=== PATIENT | female | born 1990 | race Caucasian/White ===

== ENCOUNTER → 2019-03-12 11:10 | Outpatient (CLI) | payer OTHER, SELFPAY ==
[2019-03-12 16:25] LABS: Follicle Stimulating Hormone 1.9 mIU/mL; Free T3 3.1 pg/mL (2.18-3.98); Luteinizing Hormone 6.5 mIU/mL; T4 Free Direct 1.05 ng/dL (0.76-1.46); Thyroid Stim Hormone (TSH) 1.06 uIU/mL (0.358-3.74)
[2019-03-12 16:26] LABS: Progesterone Level 11.66 ng/mL (See Comment)
== END ==
PROVIDERS: Visit Provider Advanced Practice Midwife
DX: N92.6 Irregular menstruation, unspecified (principal)
CPT/HCPCS: 36415; 83001; 83002; 84144; 84439; 84443; 84481

== ENCOUNTER → 2019-06-12 16:35 | Outpatient (CLI) | payer OTHER, SELFPAY ==
[2019-06-12 19:26] LABS: Chlamydia Trachomatis by PCR Negative (Negative); Neisserai gonorrhoeae by PCR Negative (Negative); Probe Check PASS; Sample Adequacy Control PASS; Specimen Processing Control PASS
== END ==
PROVIDERS: Visit Provider Obstetrics & Gynecology
DX: Z11.3 Encounter for screening for infections with a predominantly sexual mode of transmission (principal)
CPT/HCPCS: 87491; 87591

== ENCOUNTER → 2019-07-09 | Outpatient (CLI) | payer OTHER, SELFPAY ==
[2019-07-09 17:56] LABS: Absolute Lymphocyte Count 1.21 X10^3/uL (0.83-4.51); Absolute Neutrophil Count 5.2 X10^3/uL (2.0-7.7); Basophil# 0.03 X10^3/uL; Basophil% 0.4 % (0-1); Eosinophil# 0.07 X10^3/uL; Hematocrit 32.1 % (37-47); Hemoglobin 10.3 g/dL (12.0-15.0); Lymphocyte # 1.21 X10^3/ul (4.0); Lymphocyte % 17.3 % (19-41); Mean Corp Hgb Conc 32.1 g/dL (32-36); Mean Corpuscular Hgb 25.7 pg (27.0-32.0); Mean Platelet Vol. 9.5 fl (6.2-12.0); Monocyte# 0.46 X10^3/uL; Monocyte% 6.6 % (0-10); NRBC Flagged by Analyzer 0 % (0-5); Neutrophil # 5.21 X10^3/uL (2.7-7.7); Neutrophil % 74.4 % (47-70); Platelet Count 244 K/mm3 (150-450); RBC Distribution Width CV 16.4 % (11.6-14.6); RBC Distribution Width SD 47.8 fl (35.1-43.9); Red Blood Count 4.01 M/mm3 (4.2-5.4)
[2019-07-09 18:44] LABS: Hemoglobin A1c 4.7 % (4.2-6.3)
[2019-07-10 01:56] LABS: Prenatal RPR NONREACTIVE (NONREACTIVE)
[2019-07-10 11:29] LABS: HIV - WCH Non-Reactive (Nonreactive); Hepatitis B Surface Antigen Non-Reactive (Nonreactive); Hepatitis C Antibody Non-Reactive (Nonreactive); Rubella IgG 24.3 IU/mL
== END | disposition home or self-care (01) ==
PROVIDERS: Referring Provider Obstetrics & Gynecology; Visit Provider Obstetrics & Gynecology
DX: Z34.81 Encounter for supervision of other normal pregnancy, first trimester (principal)
CPT/HCPCS: 83036; 84443; 85025; 86703; 86762; 86803; 87340

== ENCOUNTER → 2019-11-05 | Outpatient (CLI) | payer OTHER, SELFPAY ==
[2019-11-05 17:29] LABS: Color, Urine Yellow (Yellow); Glucose, Dipstick 50 mg/dl (Normal); Ketone-Dipstick Negative (Negative); Leukocyte Esterase-Dipstick 500 /ul (Negative); Nitrite-Dipstick Negative (Negative); Occult Blood-Urine Negative /ul (Negative); Protein-Dipstick Negative (Negative); Specific Gravity, Urine 1.015 (1.002-1.030); Urine Bilirubin Dipstick Negative (Negative); Urine Clarity Sl. Cloudy (Clear); Urine Urobilinogen Normal (Normal)
[2019-11-05 17:31] LABS: Glucose Challenge Gest 1H 50g 117 mg/dL (70-140)
[2019-11-05 17:35] LABS: Hematocrit 36.4 % (37-47); Hemoglobin 12.4 g/dL (12.0-15.0); Mean Corp Hgb Conc 34.1 g/dL (32-36); Mean Corpuscular Hgb 32.5 pg (27.0-32.0); Mean Corpuscular Volume 95.5 fL (81-99); Mean Platelet Vol. 9.5 fl (6.2-12.0); Platelet Count 191 K/mm3 (150-450); RBC Distribution Width CV 13.3 % (11.6-14.6); RBC Distribution Width SD 46.9 fl (35.1-43.9); Red Blood Count 3.81 M/mm3 (4.2-5.4); White Blood Count 7.8 K/mm3 (4.4-11.0)
[2019-11-05 18:23] LABS: Amphetamine Urine VISTA NEGATIVE (<1000 ng/mL); Barbiturate Urine VISTA NEGATIVE (< 200 ng/mL); Benzodiazepine Urine VISTA NEGATIVE (< 200 ng/mL); Cocaine Urine VISTA NEGATIVE (< 300 ng/mL); Ecstacy Urine VISTA NEGATIVE (< 500 ng/mL); Methadone Urine VISTA NEGATIVE (< 300 ng/mL); PCP Urine VISTA NEGATIVE (< 25 ng/mL); THC Urine VISTA NEGATIVE (< 50 ng/mL); Vista UDS pH Range 6
== END | disposition home or self-care (01) ==
LOC: WOBLAB 16:26
PROVIDERS: Visit Provider Obstetrics & Gynecology
DX: Z34.82 Encounter for supervision of other normal pregnancy, second trimester (principal)
CPT/HCPCS: 36415; 80307; 81002; 82950; 85027

== ENCOUNTER → 2020-01-06 16:56 | Outpatient (CLI) | payer OTHER, SELFPAY | PROVIDERS: Visit Provider Obstetrics & Gynecology | DX: Z36.85 Encounter for antenatal screening for Streptococcus B (principal) | CPT/HCPCS: 87077; 87081; 87186 ==

== ENCOUNTER 2020-01-15 04:40 | Inpatient (IN) | payer OTHER, SELFPAY ==
[2020-01-15] VITALS (24 sets, daily range): BP systolic 121–159; BP diastolic 59–96; PULSE 73–102; RESP 16; TEMP 36.4–37.1; O2SAT 98–100; BMI 43.7
[2020-01-15 04:34] LABS: ROM Internal Control Test YES-OK TO RESULT pt. (Internal QC)
[2020-01-15 04:36] LABS: ROM Patient Test POSITIVE (Negative)
--- NOTE | 2020-01-15 05:29 | PCM.HP.OB ---
- Problem List (1) 37 weeks gestation of Status: Acute (2) SROM (spontaneous rupture of membranes) Status: Acute History Date of Admission: 01/15/20 Final GILBERT: 01/31/20 Gestational age: 37 Weeks and 5 Days History of this : This is a 29 year-old, G [1], P [], at 37 5/7 weeks gestational age presenting with leaking of clear fluid and contractions. Medical History: Medical History (Last Updated 01/15/20 @ 05:[address] Trini Howard MD) Ovarian cyst affecting , antepartum O34.80, N83.209 left in Surgical History: Surgical History (Last Updated 01/15/20 @ 07:[address] Trini Howard MD) History of bunionectomy Z98.890 Hx of hernia repair Z98.890, Z87.19 age 10 Allergies No Known Allergies Allergy (Verified 01/15/20 04:19) Home Medications: Home Medications Pnv No.95/Ferrous Fum/Folic AC [ Caplet] 1 ea PO DAILY 01/15/20 Smoking Status: Never smoker Alcohol: None Number of Fetus(es): 1 NST - FHR Rate Baby A Baseline: 140 Variability:: Moderate Accelerations:: 15 x 15 Decelerations:: None NST Reactive:: Yes FHR Category:: Category I Uterine Activity:: 3/10 min History Past Pregnancies: Past Pregnancies Delivery Date Name GA/ Weeks Outcome Route Wt Sex Labor Length Anesthesia Delivery Location Provider FOB Labs: Mom's Problem List Problem Status Onset Code 37 weeks gestation of Acute Z3A.37 SROM (spontaneous rupture of membranes) Acute Mom's Labs & Results 01/15/20 04:20 Vag Amniotic Fld Detect POSITIVE H Course Did the patient receive Yes care? Labs Blood Type: B RH: POSITIVE RPR/VDRL/Syphilis Nonreactive Rubella status Immune HbSAg Negative Date Done: 07/09/19 Chlamydia Negative Gonorrhea Negative HIV/AIDS Non-Reactive Group B Strep: Positive Current Obstetrical History Gestational Diabetes No Incompetent Cervix No Infertility No IUGR No Macrosomia No Hypertension/Pre-eclampsia No Placenta Previa/Abruption No PTL/PROM No Uterine anomaly No Oligohydramnios No Polyhydramnios No Multiple gestation No Past Medical History Asthma No Diabetes No Hypertension No Heart disease No Mitral valve prolapse No Neurologic/Seizure disorder/ No Migraines Kidney disease No Liver disease No Varicosities No Clotting disorders/Hx of DVT No Thyroid Dysfunction No Other medical diseases No Psychiatric disorders No Major trauma No Abnormal PAP smear No Sleep apnea No Mammogram in the last 2 years No Social History Marital Status: Alleged father Kelvin Fox Hx Smoking No Smoking Status Never smoker Expected Infant Delivery Method: Spontaneous Vaginal Number of Visits: 10 Review of Systems Constitutional: Denies: Fever Eyes: Denies: Vision Change HEENT: Denies: Head Aches Cardiovascular: Denies: Chest Pain Respiratory: Denies: Cough, Shortness of Breath Gastrointestinal: Denies: Abdominal Pain, Nausea, Vomiting Gynecological: Denies: Vaginal bleeding Musculoskeletal: Denies: Back Pain Physical Exam Vitals: Vital Signs Temp Pulse BP Pulse Ox 98.0 F 90 135/89 H 99 01/15/20 05:01 01/15/20 05:01 01/15/20 04:11 01/15/20 05:01 General: Alert, Oriented x3, Cooperative, No apparent distress HEENT: Atraumatic, Normocephalic Cardiovascular: Regular rate, Regular Rhythm, Normal S1, Normal S2 Lungs: Clear to auscultation, Normal air movement Abdomen: Soft, Non Tender, Non-Distended, Gravid Extremities:: Other - trace b/l LE edema Neurological: Neuro grossly intact Estimated gestational size: Appropriate for gestational size Presentation: - - assessed on US with back maternal left Cervix Dilation (cm): 2 Station: -3 Effacement (%): 60 Assessment/Plan All Active Problems (Last Updated 01/15/20 @ 05:[address] Trini Howard MD) 37 weeks gestation of (Acute) SROM (spontaneous rupture of membranes) (Acute) This is a 29 year-old, G [1], P [], at 37 5/7 weeks gestational age with SROM. Admit in labor PCN for GBS positive Expectant labor management, pt desires low intervention. Will start pitocin if no significant change in contractions 6+ hours after ROM Maternal and statuses reassuring
[2020-01-15] MEDS: Lactated Ringers 1,000 ML 50 ML IV (05:30)
[2020-01-15 05:48] LABS: Absolute Lymphocyte Count 1.42 X10^3/uL (0.83-4.51); Absolute Neutrophil Count 7.4 X10^3/uL (2.0-7.7); Basophil# 0.04 X10^3/uL; Basophil% 0.4 % (0-1); Eosinophil# 0.09 X10^3/uL; Eosinophils% 0.9 % (0-5); Hematocrit 33.9 % (37-47); Hemoglobin 11.3 g/dL (12.0-15.0); Lymphocyte # 1.42 X10^3/ul (4.0); Lymphocyte % 14.5 % (19-41); Mean Corp Hgb Conc 33.3 g/dL (32-36); Mean Corpuscular Hgb 31.5 pg (27.0-32.0); Mean Corpuscular Volume 94.4 fL (81-99); Mean Platelet Vol. 9.7 fl (6.2-12.0); Monocyte# 0.76 X10^3/uL; Monocyte% 7.7 % (0-10); NRBC Flagged by Analyzer 0 % (0-5); Neutrophil # 7.39 X10^3/uL (2.7-7.7); Neutrophil % 75.4 % (47-70); Platelet Count 189 K/mm3 (150-450); RBC Distribution Width CV 12.7 % (11.6-14.6); RBC Distribution Width SD 43.8 fl (35.1-43.9); Red Blood Count 3.59 M/mm3 (4.2-5.4); White Blood Count 9.8 K/mm3 (4.4-11.0)
[2020-01-15] MEDS: Oxytocin 30 units/NS 500 ml 30 UNITS/500 ML IV.SOLN IV (08:54)
[2020-01-15] MEDS: Lactated Ringers 500 ML 999 ML IV (11:47)
[2020-01-15] MEDS: Oxytocin 30 units/NS 500 ml 30 UNITS/500 ML IV.SOLN 334 UNITS IV (13:49)
--- NOTE | 2020-01-15 13:58 | PCM.OPRPT ---
Problem List (1) 37 weeks gestation of Status: Acute (2) SROM (spontaneous rupture of membranes) Status: Acute Vaginal Delivery Maternal Presentation: Spontaneous Rupture of Membranes Method of Induction: Pitocin Amniotic Membrane Rupture Type: Spontaneous at home Rupture of Membrane time: 0230h 01/15/20 Amniotic Fluid Description: Clear Final GILBERT: 01/31/20 Final GILBERT Source: US <20 weeks Gestational age: 37 Weeks and 5 Days Date of Procedure: 01/15/20 Pre-Operative Diagnosis: 37 5/7 weeks gestation, SROM Post-Operative Diagnosis: 37 5/7 weeks gestation, SROM Type of Anesthesia: None Description of Procedure: Patient was FD/+ 3 station on my arrival between contractions with Cat II FHR with recurrent variable decelerations. Patient pushed to deliver a vigorous male infant through a nuchal cord in JOSHUA over an intact perineum. The was placed on the maternal abdomen and further attended by nursery personnel. The cord was doubly clamped and cut at 3 minutes of life. The placenta delivered spontaneously and appeared intact on inspection. Cord gases were obtained. Sponge counts correct x 2. Presentation: Vertex Placental Delivery Description: Spontaneous Placenta Disposition: [facility] Cord Vessel Description: 3 Vessels Nuchal Cord Compression: With compression Cord Gases drawn per routine: ABG, VBG Cord Entanglement: None Estimated Blood Loss: 250 ml A gender: Male (1 minute): 8 (5 minute): 9 Episiotomy Description: None Laceration: None Medications given after delivery: IV Pitocin Complications: None
[2020-01-16 03:10] VITALS: BP 125/83; PULSE 84; RESP 16; TEMP 37.3
[2020-01-16] MEDS: Acetaminophen 500 MG Tablet 1000 MG PO ×2 (03:22→14:42)
--- NOTE | 2020-01-16 07:08 | PCM.PN.OB ---
Patient Problems: Active and Suspected Problems (Last Updated 01/15/20 @ 05:[address] Trini Howard MD) 37 weeks gestation of (Acute) SROM (spontaneous rupture of membranes) (Acute) Subjective: No overnight complaints. Breast-feeding. - Physical Exam Vitals/I&O's: Vital Signs Temp Pulse Resp BP Pulse Ox 99.1 F 84 16 125/83 H 100 01/16/20 03:10 01/16/20 03:10 01/16/20 03:10 01/16/20 03:10 01/15/20 13:58 Oxygen Delivery Method Room Air Weight: 195 lb 5.273 oz Body Mass Index (BMI) 43.7 Intake and Output for Last 24 Hours 01/14/20 01/15/20 01/16/20 23:59 23:59 23:59 Intake Total 2183.76 / 2183.76 Output Total 900 / 900 Balance 1283.76 / 1283.76 General: Alert, Oriented x3, Cooperative, No apparent distress HEENT: Atraumatic, Normocephalic Oral: Moist Mucosa Neck: Supple Abdomen: Soft, Non Tender, Gravid - Fundus firm and below umbilicus Extremities: No clubbing, No cyanosis, No edema Psych/Mental Status: Normal Affect, Appropriate, Alert and oriented to time, place, person, mood and affect Current Medications Acetaminophen (Acetaminophen 500 Mg Tablet) 1,000 mg PO Q8H PRN PRN PRN Reason: Pain Score 1-10 Last Admin: 01/16/20 03:22 Dose: 1,000 mg Documented by: Bisacodyl (Bisacodyl 10 Mg Suppository) 10 mg RECTAL UD PRN PRN Reason: If no BM Dibucaine (Dibucaine 30 Gm Tube) 1 applic TOPICAL TID PRN PRN; Protocol PRN Reason: Discomfort Hydrocortisone (Hydrocortisone 2.5% Crm) 1 applic TOPICAL TID PRN PRN; Protocol PRN Reason: Discomfort Ibuprofen (Ibuprofen 600 Mg Tablet) 600 mg PO Q6H PRN PRN PRN Reason: Pain Score 1-10 Methylergonovine Maleate (Methylergonovine 0.2 Mg/Ml Ampul) 0.2 mg IM X1 PRN PRN Reason: Excess bleeding/uterine atony Multivit/Folic Acid/Iron ( Vits Tablet) 1 tablet PO DAILY@1200 FRITZ Senna/Docusate Sodium (Senna/Docusate Sodium 1 Tablet) 1 - 2 tablet PO DAILY PRN PRN PRN Reason: Constipation Simethicone (Simethicone 80 Mg Tablet) 80 mg PO PCHS PRN PRN Reason: Indigestion/Stomach pain Sodium Chloride (0.9% Saline Lock 10 Ml Syringe) 5 - 15 ml IV UD PRN PRN Reason: SALINE FLUSH Medical Necessity - Tobacco Use Smoking Status: Never smoker Assessment/Plan All Active Problems (Last Updated 01/15/20 @ 05:[address] Trini Howard MD) 37 weeks gestation of (Acute) SROM (spontaneous rupture of membranes) (Acute) day 1. Breast-feeding. Pain well controlled. Okay to DC home as long as human resources benefits manager clears baby to also discharge home.
--- NOTE | 2020-01-16 07:10 | DCINST_ITS ---
Discharge Diet: No Restrictions Discharge Activity: Return to Normal Activity May resume sexual activity in: 2 weeks Weight Bearing Status: Weight bearing as tolerated Call your doctor if your incision/area has: Foul Smelling Discharge Call your doctor if you observe: Fever of 101 or Higher, Shortness of breath, Chest pain Additional Instructions: If you experience any of the following, contact your healthcare provider. * Bleeding that soaks a pad every hour for 2 hours * Fever 100.4 or higher * Unrelieved incision or abdominal pain * Swelling, redness, discharge or bleeding from your incision or episiotomy site * Your incision begins to separate * Problems urinating (including inability to urinate or burning while urinating). * Visual changes * Severe headache * Flu-like symptoms * Pain or redness in one of both of your breasts * Pain, warmth, tenderness or swelling in your legs, especially the calf area * Frequent nausea and vomiting * Symptoms of depression or anxiety If you experience any of the following, call 911 or go to the nearest Emergency Room. * Chest pain * Problems breathing * Seizure activity * Partial or complete paralysis of a body part, slurred speech, weakness or drooping of the face, or a sudden inability to walk or hold your balance Allergies/Adverse Reactions: Allergies No Known Allergies Allergy (Verified 01/15/20 04:19) Medications to take at Discharge Pnv No.95/Ferrous Fum/Folic AC [ Caplet] 1 ea PO DAILY 01/15/20 Please Follow Up With: Trini Benitez MD When: 4-6 weeks Primary Care Physician: Tiff Domingo NP, [facility] [Primary Care Provider] - Test Results: Test results from this visit will be discussed in further detail at your follow- up appointment, if applicable.
--- NOTE | 2020-01-16 07:10 | PCM.DCVAG ---
Discharge Diet: No Restrictions Discharge Activity: Return to Normal Activity May resume sexual activity in: 2 weeks Weight Bearing Status: Weight bearing as tolerated Call your doctor if your incision/area has: Foul Smelling Discharge Call your doctor if you observe: Fever of 101 or Higher, Shortness of breath, Chest pain Additional Instructions: If you experience any of the following, contact your healthcare provider. Bleeding that soaks a pad every hour for 2 hours Fever 100.4 or higher Unrelieved incision or abdominal pain Swelling, redness, discharge or bleeding from your incision or episiotomy site Your incision begins to separate Problems urinating (including inability to urinate or burning while urinating). Visual changes Severe headache Flu-like symptoms Pain or redness in one of both of your breasts Pain, warmth, tenderness or swelling in your legs, especially the calf area Frequent nausea and vomiting Symptoms of depression or anxiety If you experience any of the following, call 911 or go to the nearest Emergency Room. Chest pain Problems breathing Seizure activity Partial or complete paralysis of a body part, slurred speech, weakness or drooping of the face, or a sudden inability to walk or hold your balance Allergies/Adverse Reactions: Allergies No Known Allergies Allergy (Verified 01/15/20 04:19) Medications to take at Discharge Pnv No.95/Ferrous Fum/Folic AC [ Caplet] 1 ea PO DAILY 01/15/20 Please Follow Up With: Trini Benitez MD When: 4-6 weeks Primary Care Physician: Tiff Domingo NP, [facility] [employer] [facility] [Primary Care Provider] - Test Results: Test results from this visit will be discussed in further detail at your follow-up appointment, if applicable.
[2020-01-16 08:00] VITALS: BP 128/85; PULSE 85; RESP 16; TEMP 36.8
[2020-01-16] MEDS: Prenatal Vits Tablet 1 TABLET PO (11:38)
[2020-01-16 12:00] VITALS: BP 126/83; PULSE 93; RESP 17; TEMP 36.5
--- NOTE | 2020-01-16 16:54 | NURSING ---
pt given discharge instructions pt verbalizes understanding
== END 2020-01-16 17:05 | disposition home or self-care (01) | DRG 807 ==
LOC: WPOUT 04:40 → WP 04:40
PROVIDERS: Admitting Provider Obstetrics & Gynecology; PCP Nurse Practitioner Primary Care; Visit Provider Obstetrics & Gynecology
DX: O99.824 Streptococcus B carrier state complicating childbirth (principal); O69.1XX0 Labor and delivery complicated by cord around neck, with compression, not applicable or unspecified; O76 Abnormality in fetal heart rate and rhythm complicating labor and delivery; Z3A.37 37 weeks gestation of pregnancy; Z37.0 Single live birth
CPT/HCPCS: 59025; 59050; 84112; 85025; 86850; 86900; 86901; 99218; J7120; G0378